=== PATIENT | female | born 1990 | race Caucasian/White ===

== ENCOUNTER 2020-05-24 19:23 | Emergency (ER) | payer BC ==
[2020-05-24] MEDS ORDERED: Sodium Chloride 0.9% 1,000 ML IV ONE (19:26)
--- NOTE | 2020-05-24 19:28 | EDM.PDOC ---
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 She states she has not been able to keep any food down over the past 2 days and is concerned she may be dehydrated. She has seen Dr. Motta at [facility] to confirm with labs. Has not had an OB ultrasound to confirm IUP. 1 para 0. Last menstrual period early March 2020, she is approximately 8 weeks. Patient denies any fever, chills, headache, change in vision, syncope or near syncope. Denies any chest pain, back pain, shortness of breath or cough. Denies any diarrhea, constipation or dysuria. Has not noted any blood in urine or stool. She denies any vaginal discharge or bleeding. Patient has been eating and drinking appropriately. Review of systems: As per history of present illness and below otherwise all systems reviewed and negative. Past medical history: As per history of present illness and as reviewed below otherwise noncontributory. Surgical history: As per history of present illness and as reviewed below otherwise noncontributory. Social history: See social history for further information Family history: As per history of present illness and as reviewed below otherwise noncontributory. Physical exam: General: Well-developed and well-nourished 29-year-old female. Alert and oriented. Nontoxic-appearing and in no acute distress. HEENT: Atraumatic, normocephalic, pupils equal and reactive bilaterally, negative for conjunctival pallor or scleral icterus, mucous membranes moist, TMs normal bilaterally, throat clear, neck supple, nontender, trachea midline. No drooling or trismus noted. No meningeal signs. No hot potato voice noted. Lungs: Clear to auscultation, breath sounds equal bilaterally, chest nontender. Heart: S1S2, regular rate and rhythm without overt murmur Abdomen: Soft, nondistended, nontender. Negative for masses or hepatosplenomegaly. Negative for costovertebral tenderness. Pelvis: Stable nontender. Skin: Intact, warm, dry. No lesions or rashes noted. Hematologic: No petechiae or purpra. Mucosa appropriate color and normal nail bed color and refill. Extremities: Atraumatic, moves all extremities per self without difficulty or deficits, negative for cords or calf pain. Neurovascular unremarkable. Neuro: Awake, alert, oriented. Cranial nerves II through XII unremarkable. Cerebellum unremarkable. Motor and sensory unremarkable throughout. Exam nonfocal. Notes: Lab work is unremarkable. B Positive blood type. Ultrasound shows a single IUP measuring 8 weeks and 3 days. Heart rate 185., No complicating processes identified. Patient states she still has nausea. She declined wanting to insert a Phenergan suppository while here in the emergency room or receive an IM injection. I did talk to Dr. Anand, MAP MAKER on-call about their preferred next medications. She would like the patient to try Phenergan. Will try Phenergan outpatient. Patient's vital signs are stable. On reevaluation she is appropriate for discharge. Supportive care measures were reviewed and discussed. Voices understanding and is agreeable to plan of care. Denies any further questions or concerns at this time. Diagnostics: CBC, CMP, UA, quantitative hCG, OB ultrasound Therapeutics: IV fluids, Zofran Prescription: Phenergan Impression: Hyperemesis gravidarum Plan: 1. Please start and/or continue to take your vitamin with folic acid once daily. 2. Your lab work and ultrasound were normal. You are measuring at 8 weeks and 3 days (Due 12/31/2020). 3. Tylenol as needed for pain management. May use the phenergan as needed for nausea/vomiting. 4. Follow up with her MAP MAKER in the next 1-2 days. If your symptoms should worsen, new symptoms develop or any of the signs and symptoms we discussed should arise please return to the emergency room or call 911 (if needed). Definitive disposition and diagnosis as appropriate pending reevaluation and review of above. Abdomen Pain Score (Numeric/FACES): 5 - Related Data Allergies Allergy/AdvReac Type Severity Reaction Status Date / Time No Known Allergies Allergy Verified 05/24/20 19:42 Home Meds: Home Meds Albuterol [Ventolin HFA] 1 inh INH DAILY PRN 05/24/20 [History] Ondansetron [Zofran ODT] 4 mg PO Q6H PRN #15 tab.dis 05/24/20 [Rx] ED ROS GENERAL - Review of Systems Review Of Systems: Comprehensive ROS is negative, except as noted in HPI. ED EXAM - Physical Exam Exam: See Below (See dictation) Course - Vital Signs Last Recorded V/S: Last Vital Signs Temp 97.6 F 05/24/20 19:42 Pulse 73 05/24/20 21:38 Resp 18 05/24/20 21:38 BP 106/61 05/24/20 21:38 Pulse Ox 98 05/24/20 21:38 - Orders/Labs/Meds Labs: Laboratory Tests 05/24/20 05/24/20 05/24/20 Range/Units 19:55 19:55 19:55 WBC 8.70 (4.0-11.0) K/uL RBC 4.54 (4.30-5.90) M/uL Hgb 14.2 (12.0-16.0) g/dL Hct 41.6 (36.0-46.0) % MCV 91.6 (80.0-98.0) fL MCH 31.3 (27.0-32.0) pg MCHC 34.1 (31.0-37.0) g/dL RDW Std Deviation 42.4 (28.0-62.0) fl RDW Coeff of Bobo 13 (11.0-15.0) % Plt Count 279 (150-400) K/uL MPV 10.30 (7.40-12.00) fL Neut % (Auto) 86.0 H (48.0-80.0) % Lymph % (Auto) 7.4 L (16.0-40.0) % [place] % (Auto) 6.3 (0.0-15.0) % Eos % (Auto) 0.1 (0.0-7.0) % Baso % (Auto) 0.2 (0.0-1.5) % Neut # (Auto) 7.5 H (1.4-5.7) K/uL Lymph # (Auto) 0.6 (0.6-2.4) K/uL [place] # (Auto) 0.6 (0.0-0.8) K/uL Eos # (Auto) 0.0 (0.0-0.7) K/uL Baso # (Auto) 0.0 (0.0-0.1) K/uL Nucleated RBC % 0.0 /100WBC Nucleated RBCs # 0 K/uL Sodium 137 (136-145) mmol/L Potassium 3.6 (3.5-5.1) mmol/L Chloride 101 (98-107) mmol/L Carbon Dioxide 25.9 (21.0-32.0) mmol/L BUN 9 (7.0-18.0) mg/dL Creatinine 0.8 (0.6-1.0) mg/dL Est Cr Clr Drug Dosing 107.46 mL/min Estimated GFR (MDRD) > 60.0 ml/min Glucose 101 (74-106) mg/dL Calcium 8.6 (8.5-10.1) mg/dL Total Bilirubin 0.1 L (0.2-1.0) mg/dL AST 20 (15-37) IU/L ALT 22 (14-63) IU/L Alkaline Phosphatase 38 L (46-116) U/L Total Protein 8.1 (6.4-8.2) g/dL Albumin 4.0 (3.4-5.0) g/dL Globulin 4.1 H (2.6-4.0) g/dL Albumin/Globulin Ratio 1.0 (0.9-1.6) HCG, Quant 74262.0 mIU/mL Urine Color Urine Appearance Urine pH (5.0-8.0) Ur Specific [place] (1.001-1.035) Urine Protein (NEGATIVE) mg/dL Urine Glucose (UA) (NEGATIVE) mg/dL Urine Ketones (NEGATIVE) mg/dL Urine Occult Blood (NEGATIVE) Urine Nitrite (NEGATIVE) Urine Bilirubin (NEGATIVE) Urine Urobilinogen (<2.0) EU/dL Ur Leukocyte Esterase (NEGATIVE) Blood Type 05/24/20 05/24/20 Range/Units 19:55 20:17 WBC (4.0-11.0) K/uL RBC (4.30-5.90) M/uL Hgb (12.0-16.0) g/dL Hct (36.0-46.0) % MCV (80.0-98.0) fL MCH (27.0-32.0) pg MCHC (31.0-37.0) g/dL RDW Std Deviation (28.0-62.0) fl RDW Coeff of Bobo (11.0-15.0) % Plt Count (150-400) K/uL MPV (7.40-12.00) fL Neut % (Auto) (48.0-80.0) % Lymph % (Auto) (16.0-40.0) % [place] % (Auto) (0.0-15.0) % Eos % (Auto) (0.0-7.0) % Baso % (Auto) (0.0-1.5) % Neut # (Auto) (1.4-5.7) K/uL Lymph # (Auto) (0.6-2.4) K/uL [place] # (Auto) (0.0-0.8) K/uL Eos # (Auto) (0.0-0.7) K/uL Baso # (Auto) (0.0-0.1) K/uL Nucleated RBC % /100WBC Nucleated RBCs # K/uL Sodium (136-145) mmol/L Potassium (3.5-5.1) mmol/L Chloride (98-107) mmol/L Carbon Dioxide (21.0-32.0) mmol/L BUN (7.0-18.0) mg/dL Creatinine (0.6-1.0) mg/dL Est Cr Clr Drug Dosing mL/min Estimated GFR (MDRD) ml/min Glucose (74-106) mg/dL Calcium (8.5-10.1) mg/dL Total Bilirubin (0.2-1.0) mg/dL AST (15-37) IU/L ALT (14-63) IU/L Alkaline Phosphatase (46-116) U/L Total Protein (6.4-8.2) g/dL Albumin (3.4-5.0) g/dL Globulin (2.6-4.0) g/dL Albumin/Globulin Ratio (0.9-1.6) HCG, Quant mIU/mL Urine Color YELLOW Urine Appearance CLEAR Urine pH 6.0 (5.0-8.0) Ur Specific [place] 1.015 (1.001-1.035) Urine Protein NEGATIVE (NEGATIVE) mg/dL Urine Glucose (UA) NEGATIVE (NEGATIVE) mg/dL Urine Ketones NEGATIVE (NEGATIVE) mg/dL Urine Occult Blood NEGATIVE (NEGATIVE) Urine Nitrite NEGATIVE (NEGATIVE) Urine Bilirubin NEGATIVE (NEGATIVE) Urine Urobilinogen 0.2 (<2.0) EU/dL Ur Leukocyte Esterase NEGATIVE (NEGATIVE) Blood Type B POSITIVE Meds: Medications Discontinued Medications Generic Name Dose Route Start Last Admin Trade Name Freq PRN Reason Stop Dose Admin Sodium Chloride 1,000 mls @ 999 mls/hr 05/24/20 19:26 05/24/20 20:01 Normal Saline IV 05/24/20 20:26 999 mls/hr STAT ONE Administration Ondansetron HCl 4 mg 05/24/20 19:50 05/24/20 20:01 Zofran IVPUSH 05/24/20 19:51 4 mg ONETIME ONE Administration Ondansetron HCl Confirm 05/24/20 19:59 05/24/20 20:19 Zofran Administered 05/24/20 20:00 Not Given Dose 4 mg .ROUTE .STK-MED ONE Promethazine HCl 12.5 mg 05/24/20 21:38 Phenadoz RECTAL 05/24/20 21:39 ONETIME ONE Departure - Departure Time of Disposition: 21:35 Disposition: Home, Self-Care 01 Clinical Impression: Hyperemesis gravidarum - Discharge Information Prescriptions: Ondansetron [Zofran ODT] 4 mg PO Q6H PRN #15 tab.dis PRN Reason: Nausea Referrals: PCP,None [Primary Care Provider] - Forms: ED Department Discharge Additional Instructions: The following information is given to patients seen in the emergency department who are being discharged to home. This information is to outline your options for follow-up care. We provide all patients seen in our emergency department with a follow-up referral. The need for follow-up, as well as the timing and circumstances, are variable depending upon the specifics of your emergency department visit. If you don't have a primary care physician on staff, we will provide you with a referral. We always advise you to contact your personal physician following an emergency department visit to inform them of the circumstance of the visit and for follow-up with them and/or the need for any referrals to a consulting specialist. The emergency department will also refer you to a specialist when appropriate. This referral assures that you have the opportunity for follow-up care with a specialist. All of these measure are taken in an effort to provide you with optimal care, which includes your follow-up. Under all circumstances we always encourage you to contact your private physician who remains a resource for coordinating your care. When calling for follow-up care, please make the office aware that this follow-up is from your recent emergency room visit. If for any reason you are refused follow-up, please contact the [facility] Emergency Department at and asked to speak to the emergency department charge nurse. [facility] [address] [place] [id number] [facility] [address] [place] [id number] Thank you for choosing the [facility] emergency department in [place] for your medical needs today. It was a pleasure caring for you. Today you were seen in the emergency department for nausea and vomiting in . 1. Please start and/or continue to take your vitamin with folic acid once daily. 2. Your lab work and ultrasound were normal. You are measuring at 8 weeks and 3 days (Due 12/31/2020). 3. Tylenol as needed for pain management. May use the phenergan as needed for nausea/vomiting. 4. Follow up with her MAP MAKER in the next 1-2 days. If your symptoms should worsen, new symptoms develop or any of the signs and symptoms we discussed should arise please return to the emergency room or call 911 (if needed). Sepsis Event Note (ED) - Focused Exam Vital Signs: Vital Signs Temp Pulse Resp BP Pulse Ox 05/24/20 21:38 73 18 106/61 98 05/24/20 21:00 73 14 108/57 L 99 05/24/20 19:42 97.6 F 74 20 118/74 97
[2020-05-24] MEDS ORDERED: Ondansetron 4 MG/2 ML SDV IVPUSH ONE (19:50)
[2020-05-24] MEDS ORDERED: Ondansetron 4 MG/2 ML SDV ONE (19:59)
[2020-05-24 20:29] LABS: BLOOD UREA NITROGEN,BUN 9 mg/dL (7.0-18.0); CARBON DIOXIDE,CO2 25.9 mmol/L (21.0-32.0); CHLORIDE,CL 101 mmol/L (98-107); GLUCOSE RANDOM 101 mg/dL (74-106); POTASSIUM,K 3.6 mmol/L (3.5-5.1); SODIUM,NA 137 mmol/L (136-145)
--- NOTE | 2020-05-24 21:14 | US ---
First trimester obstetrical ultrasound: Multiple real-time images were obtained transvaginally. Comparison: No previous study for current . Dates: Current ultrasound: WIN 12/31/20, gestational age 8 weeks 3 days Single intrauterine gestation is seen. Amniotic fluid volume is normal. Small embryo is identified as well as yolk sac. No subchorionic hemorrhage is identified. Small corpus luteum cyst is noted within the maternal left ovary believed to be incidental. Right maternal ovary is normal. Measurements: Binger-rump length: 18.73 mm - 8 weeks 3 days Heart rate: 185 bpm Impression: 1. Single intrauterine gestation. Dates as noted above. 2. No complicating process is identified by ultrasound at this time. Diagnostic code #1 This report was dictated in MDT
[2020-05-24] MEDS ORDERED: Promethazine 12.5 MG Supp RECTAL ONE (21:38)
== END 2020-05-24 22:09 | disposition home or self-care (01) ==
LOC: MW.ED 19:23
DX: O21.0 Mild hyperemesis gravidarum (principal); Z3A.08 8 weeks gestation of pregnancy; O99.89 Other specified diseases and conditions complicating pregnancy, childbirth and the puerperium; R10.84 Generalized abdominal pain
CPT/HCPCS: 36415; 76801; 80053; 81003; 84702; 85025; 86900; 86901; 96361; 96374; 99284; A9270; J7030; 99283; J2405

== ENCOUNTER 2021-01-06 05:11 | Inpatient (IN) | payer BC ==
[2021-01-06] MEDS ORDERED: Sodium Chloride 0.9% 10 ML SDV IV PRN (05:14)
[2021-01-06] MEDS ORDERED: Methylergonovine 0.2 MG/1 ML Amp IM PRN (05:14)
[2021-01-06] MEDS ORDERED: Nalbuphine 10 MG/1 ML Vial IVPUSH PRN (05:14)
[2021-01-06] MEDS ORDERED: Carboprost Tromethamine 250 MCG/1 ML Amp IM PRN (05:14)
[2021-01-06] MEDS ORDERED: Tranexamic Acid 1,000 MG in Sodium Chloride 0.9% 100 ML IV PRN (05:14)
[2021-01-06] MEDS ORDERED: Lidocaine 1% 50 ML MDV INJECT PRN (05:14)
[2021-01-06] MEDS ORDERED: Butorphanol 1 MG/ML SDV IVPUSH PRN (05:14)
[2021-01-06] MEDS ORDERED: Water For Irrigation,Sterile 1,000 ML Container IRR PRN (05:14)
[2021-01-06] MEDS ORDERED: Sodium Chloride 0.9% 10 ML Syringe FLUSH PRN (05:14)
[2021-01-06] MEDS ORDERED: Terbutaline 1 MG/ML SDV SUBCUT PRN (05:14)
[2021-01-06] MEDS ORDERED: Misoprostol 200 MCG Tab PO PRN (05:14)
[2021-01-06] MEDS ORDERED: Sodium Chloride 0.9% 2.5 ML Syringe FLUSH PRN (05:14)
[2021-01-06] MEDS ORDERED: Oxytocin/0.9 % Sodium Chloride 30 UNIT/500 ML BAG IV SCH ×2 (05:15)
[2021-01-06] MEDS ORDERED: Ondansetron 4 MG/2 ML SDV IVPUSH PRN (05:21)
[2021-01-06] MEDS: Lactated Ringers 1,000 ML IV SCH ×6 (06:19→17:14)
[2021-01-06] MEDS ORDERED: fentaNYL 100 MCG/2 ML SDV ONE ×3 (11:12→16:29)
[2021-01-06] MEDS ORDERED: Bupivicaine/fentaNYL/NS 250 ML ONE (11:12)
--- NOTE | 2021-01-06 11:41 | PCM.PREANE ---
Preanesthetic Assessment - Anesthesia/Transfusion/Family Hx Anesthesia History: No Prior Anesthesia Family History of Anesthesia Reaction: No Transfusion History: Unknown Intubation History: Unknown - Review of Systems General: No Symptoms Pulmonary: No Symptoms Cardiovascular: No Symptoms Gastrointestinal: Abdominal Pain (labor pain) Neurological: No Symptoms Other: Reports: None - Physical Assessment Height: 5 ft 8 in Weight: 100.698 kg ASA Class: 2 Mental Status: Alert & Oriented x3 Airway Class: Mallampati = 1 Dentition: Reports: Normal Dentition Thyro-Mental Finger Breadths: 3 Mouth Opening Finger Breadths: 3 ROM/Head Extension: Full Lungs: Clear to Auscultation, Normal Respiratory Effort Cardiovascular: Regular Rate, Regular Rhythm - Lab Values: Laboratory Last Values WBC 11.84 K/uL (4.0-11.0) H 01/06/21 06:00 RBC 3.97 M/uL (4.30-5.90) L 01/06/21 06:00 Hgb 12.6 g/dL (12.0-16.0) 01/06/21 06:00 Hct 37.6 % (36.0-46.0) 01/06/21 06:00 MCV 94.7 fL (80.0-98.0) 01/06/21 06:00 MCH 31.7 pg (27.0-32.0) 01/06/21 06:00 MCHC 33.5 g/dL (31.0-37.0) 01/06/21 06:00 RDW Std Deviation 47.3 fl (28.0-62.0) 01/06/21 06:00 RDW Coeff of Bobo 14 % (11.0-15.0) 01/06/21 06:00 Plt Count 264 K/uL (150-400) 01/06/21 06:00 MPV 11.70 fL (7.40-12.00) 01/06/21 06:00 Nucleated RBC % 0.0 /100WBC 01/06/21 06:00 Nucleated RBCs # 0 K/uL 01/06/21 06:00 Blood Type B POSITIVE 01/06/21 06:00 Antibody Screen NEGATIVE 01/06/21 06:00 - Allergies Allergies/Adverse Reactions: Allergies Allergy/AdvReac Type Severity Reaction Status Date / Time No Known Allergies Allergy Verified 05/24/20 19:42 - Blood Blood Available: No - Anesthesia Plan Pre-Op Medication Ordered: None - Acknowledgements Anesthesia Type Planned: Epidural Pt an Appropriate Candidate for the Planned Anesthesia: Yes Alternatives and Risks of Anesthesia Discussed w Pt/Guardian: Yes Pt/Guardian Understands and Agrees with Anesthesia Plan: Yes PreAnesthesia Questionnaire Respiratory History: Reports: Asthma 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 History: Reports: Endometriosis, Other OB/BYN History: with sx - Infectious Disease History Infectious Disease History: Reports: Chicken Pox - HOME MEDS Home Medications: Home Meds Albuterol [Ventolin HFA] 1 inh INH DAILY PRN 05/24/20 [History] - CURRENT (IN HOUSE) MEDS Current Meds: Current Medications Butorphanol Tartrate (Butorphanol 1 Mg/Ml Sdv) 1 mg IVPUSH Q1H PRN PRN Reason: Pain Carboprost Tromethamine (Carboprost Tromethamine 250 Mcg/1 Ml Amp) 250 mcg IM ASDIRECTED PRN PRN Reason: Post Hemorrhage Oxytocin/Sodium Chloride (Oxytocin 30 Unit/500 Ml-Ns) 30 unit in 500 mls @ 999 mls/hr IV TITRATE DOROTHY Tranexamic Acid 1,000 mg/ (Sodium Chloride) 110 mls @ 660 mls/hr IV ONETIME PRN PRN Reason: Bleeding Oxytocin/Sodium Chloride (Oxytocin 30 Unit/500 Ml-Ns) 30 unit in 500 mls @ 2 mls/hr IV TITRATE DOROTHY; Protocol Last Titration: 01/06/21 09:28 Dose: 10 munits/min, 10 mls/hr Documented by: Lactated Ringer's (Ringers, Lactated) 1,000 mls @ 150 mls/hr IV ASDIRECTED DOROTHY Last Admin: 01/06/21 11:33 Dose: 999 mls/hr Documented by: Lidocaine HCl (Lidocaine 1% 50 Ml Mdv) 50 ml INJECT ONETIME PRN PRN Reason: Laceration repair Methylergonovine Maleate (Methylergonovine 0.2 Mg/1 Ml Amp) 0.2 mg IM ASDIRECTED PRN PRN Reason: Post Hemorrhage Misoprostol (Misoprostol 200 Mcg Tab) 200 mcg PO ONETIME PRN PRN Reason: Post Hemorrhage Nalbuphine HCl (Nalbuphine 10 Mg/1 Ml Vial) 10 mg IVPUSH Q1H PRN PRN Reason: Pain (severe 7-10) Ondansetron HCl (Ondansetron 4 Mg/2 Ml Sdv) 4 mg IVPUSH Q6H PRN PRN Reason: Nausea/Vomiting Sodium Chloride (Sodium Chloride 0.9% 10 Ml Syringe) 10 ml FLUSH ASDIRECTED PRN PRN Reason: Keep Vein Open Sodium Chloride (Sodium Chloride 0.9% 2.5 Ml Syringe) 2.5 ml FLUSH ASDIRECTED PRN PRN Reason: Keep Vein Open Sodium Chloride (Sodium Chloride 0.9% 10 Ml Sdv) 10 ml IV ASDIRECTED PRN PRN Reason: IV Use Sterile Water (Water For Irrigation,Sterile 1,000 Ml Container) 1,000 ml IRR ASDIRECTED PRN PRN Reason: delivery Terbutaline Sulfate (Terbutaline 1 Mg/Ml Sdv) 0.25 mg SUBCUT ASDIRECTED PRN PRN Reason: Tacysystole Discontinued Medications Fentanyl (Fentanyl 100 Mcg/2 Ml Sdv) Confirm Administered Dose 100 mcg .ROUTE .STK-MED ONE Stop: 01/06/21 11:13 Fentanyl/Bupivacaine HCl (Fentanyl/Bupivacaine/Ns 2 Mcg-0.125% 250 Ml) Confirm Administered Dose 250 mls @ as directed .ROUTE .STK-MED ONE Stop: 01/06/21 11:13
[2021-01-06] MEDS ORDERED: Lidocaine 2% with EPINEPHrine 1:200,000 20 ML SDV ONE (16:12)
[2021-01-06] MEDS ORDERED: Ropivacaine HCl/PF 100 ML ONE (16:30)
--- NOTE | 2021-01-06 16:56 | PCM.PRNOTE ---
- Free Text/Narrative Note: Anes Note Patient reports incomplete anlagesia in the perineal area. She is 6 cm dilated. Epidural cath was easily removed with tip intact. Patient in sitting position. Chloraprep scrub to lumbar area. Sterile fenestrated drape was applied. Level L3-L4 midline approach. Epidural space easily achieved singel attempt using KATELYNN technique. KATELYNN at 3 cm. Cath threaded 5 cm with ease. 1635 Test 3 cc 1.5% lido with epi negative. 1640 Load 100 mcf fentanyl plus 4 cc 2% lido with epi in slow divided doses. 1645 Pump started wtih 90 cc 0.2% ropiviciane with 1 mcg / cc fentanyl added. Rate is 8 cc hr with 6 cc q 20 min bolus. Patient reports excellent analgesia. A fluid bolus ob 1200 cc LR plus several doses of neosynephrine was given for a number of blodd pressure reading in the 80s. FHT remains normal. Time with patient [id number] Ankit Merida CRNA
[2021-01-07] MEDS ORDERED: Ropivacaine HCl/PF 100 ML ONE (00:29)
[2021-01-07] MEDS ORDERED: fentaNYL 100 MCG/2 ML SDV ONE ×2 (00:29→01:56)
--- NOTE | 2021-01-07 00:39 | PCM.PRNOTE ---
- Free Text/Narrative Note: Anes Note Epidural bag change. A new bag of 100 cc 0.2% ropivicaine with 1 mcg cc fentanyl was placed. Rate is 8 cc hr with 6 cc q 20 min prn bolus. Patient reports excellent analgesia. Tiem with patient [id number] Ankit Merida CRNA
[2021-01-07] MEDS: Lactated Ringers 1,000 ML IV SCH ×3 (00:40→17:20)
[2021-01-07] MEDS ORDERED: Bupivacaine 0.5% 30 ML SDV ONE ×2 (01:57→05:54)
--- NOTE | 2021-01-07 02:14 | PCM.PRNOTE ---
- Free Text/Narrative Note: Anes Note Julisan reports incomplete analgesia in the left and right inguinal areas. Vaginal checks by RN are not uncomfortable. A top up dose of 100 mcg fentanyl plus 5 cc 0.5% bupivicaine was administered. She now reports satisfactory analgesia. Time with patient [id number] Ankit Merida CRNA
[2021-01-07] MEDS ORDERED: Oxytocin 10 Units/1 ML SDV ONE (06:01)
[2021-01-07] MEDS ORDERED: Ketorolac 30 MG/ML SDV ONE (06:01)
[2021-01-07] MEDS ORDERED: Ondansetron 4 MG/2 ML SDV ONE (06:01)
[2021-01-07] MEDS ORDERED: Phenylephrine 1% 10 MG/ML SDV ONE (06:01)
[2021-01-07] MEDS ORDERED: ceFAZolin 1 GM Vial ONE (06:01)
[2021-01-07] MEDS ORDERED: Sodium Chloride 0.9% 20 ML ONE (06:03)
[2021-01-07] MEDS ORDERED: Morphine PF 10 MG/10 ML SDV ONE (06:04)
[2021-01-07] MEDS ORDERED: Sodium Chloride 0.9% 10 ML Syringe FLUSH PRN (08:19)
[2021-01-07] MEDS ORDERED: Sodium Chloride 0.9% 2.5 ML Syringe FLUSH PRN (08:19)
[2021-01-07] MEDS ORDERED: Oxytocin 10 Units/1 ML SDV IM PRN (08:19)
[2021-01-07] MEDS ORDERED: Bisacodyl 10 MG Supp RECTAL PRN (08:19)
[2021-01-07] MEDS ORDERED: Misoprostol 200 MCG Tab RECTAL PRN (08:19)
[2021-01-07] MEDS ORDERED: Tranexamic Acid 1,000 MG in Sodium Chloride 0.9% 100 ML IV PRN (08:19)
[2021-01-07] MEDS ORDERED: Ondansetron 4 MG/2 ML SDV IVPUSH PRN (08:19)
[2021-01-07] MEDS ORDERED: Lanolin 100% Cream 7 GM Tube TOP PRN (08:19)
[2021-01-07] MEDS ORDERED: diphenhydrAMINE 50 MG/ML SDV IVPUSH PRN (08:19)
[2021-01-07] MEDS ORDERED: Methylergonovine 0.2 MG/1 ML Amp IM PRN (08:19)
[2021-01-07] MEDS ORDERED: Acetaminophen/oxyCODONE 325-5 MG Tab PO PRN (08:19)
[2021-01-07] MEDS ORDERED: Ketorolac 30 MG/ML SDV IVPUSH SCH (08:30)
[2021-01-07] MEDS: Docusate Sodium 100 MG Cap PO SCH ×2 (10:32→20:00)
[2021-01-07] MEDS: Ketorolac 30 MG/ML SDV IVPUSH SCH ×2 (13:34→20:01)
--- NOTE | 2021-01-07 15:38 | OR ---
SURGEON: Yifan Nair MD DATE OF PROCEDURE: 01/07/2021 INDICATION FOR PROCEDURE: A 30-year-old, G1, P0, at 40 weeks and 6 days admitted for late term induction of labor. The patient had uncomplicated , is GBS negative. Estimated weight was about 3800 g. She received Pitocin and began making cervical change. She initially received an epidural for anesthesia. However, it was not very effective, and she continued to have pain. Therefore, Pitocin was stopped, and she received a second epidural, which was effective for pain relief. The Pitocin was again started, and she had spontaneous rupture of membranes with clear fluid. She slowly made cervical change and became 9 cm dilated and +1 station. However, did not make change from there. After about 3 hours, IUPC was placed to monitor contractions, and she had adequate contractions. She was also feeling pressure and having the urge to push. She continued pushing for about 2-1/2 hours with good effort. However, the baby's head did not make any descent from +1 station and the head felt asynclitic and LOP position. The heart rate also changed to category 2 tracing with heart rate of 160s, minimal variability, no accelerations, and some early or late decelerations. She did not have any signs of chorioamnionitis. Discussed with the patient that she likely has arrest of descent, most likely due to macrosomia and malpositioning. Would recommend to proceed with primary low transverse section at this time since she is remote from delivery and the baby is showing signs of distress. The patient was agreeable. Questions answered and consent signed. PREOPERATIVE DIAGNOSES: 1. Cline intrauterine at 40 weeks and 6 days. 2. Suspected macrosomia. POSTOPERATIVE DIAGNOSES: 1. Cline intrauterine at 40 weeks and 6 days. 2. Suspected macrosomia. PROCEDURE PERFORMED: Primary low transverse section. ANESTHESIA: Epidural. ANESTHESIOLOGIST: Dr. Sarita Barrios. FINDINGS: Viable male infant. scores were pending. weight of 10 pounds 15 ounces. head was LOP presentation and asynclitic. ESTIMATED BLOOD LOSS: 800 mL. DESCRIPTION OF PROCEDURE: The procedure was discussed with the patient. Risks and complications including bleeding; infection; injury to surrounding organs including bladder, bowel, and ureters; and DVTs. The patient expressed understanding. Consent was signed. The patient was brought to the operating room, she received 2 g Ancef IV and SCDs. Epidural anesthesia was already in place and topped off. Bowers catheter was already in place. The abdomen was prepped with chlorhexidine in sterile fashion and a vaginal prep was completed with Betadine. She was then draped and tested for anesthesia. Epidural was adequate. Pfannenstiel incision was made with a scalpel and dissected down to fascia. Multiple sites of bleeding were noted and cauterized. The fascia was cleared of subcutaneous tissue. The fascia was incised in the midline and extended laterally with curved Oliva scissors. Josué clamps were placed on the superior fascial edge. The rectus muscles were by blunt dissection and using Oliva scissors. The same process was repeated for the inferior fascial edge. The rectus muscles were in the midline bluntly and the peritoneum entered. Both were than carefully dissected and extended bluntly, dissected with Metzenbaum scissors. A large Kam O retractor was placed in the peritoneal cavity. The bladder was noted to be away from the site of incision. The uterus was incised transversely using a scalpel at the lower uterine segment and extended bluntly. Clear amniotic fluid was noted. The 's head was noted to be LOP presentation and asynclitic in the pelvis. Multiple attempts were made to turn the infant's head away and flex it, so it would come through the hysterotomy and fundal pressure was applied and the head was delivered atraumatically. The shoulders and body were delivered without difficulty. The umbilical cord was clamped and cut after 60 seconds and no longer pulsating. The baby was pink, crying vigorously, and moving all extremities immediately after delivery and handed off to nursery staff. The umbilical cord gases were obtained. The placenta was delivered with gentle traction on the umbilical cord. A clean sponge was used to remove all remaining membranes from the endometrial cavity and Allis clamps were used to grasp the angles and lower edges of the incision. It was noted she had an extension on both sides of the hysterotomy. The uterine incision was closed in two layers, first layer with running locking fashion using 0 Monocryl, the second layer was done with imbricated running fashion with 0 Vicryl. The incision was checked for hemostasis. [id number] were placed at two sites where there was small amount of bleeding. The paracolic gutters were cleared of any clots and the incision was irrigated. The incision was found to be hemostatic. The Kam O retractor was removed from the peritoneal cavity. The peritoneum was grasped by hemostats and brought together at the midline. It was closed using 2-0 Vicryl in running fashion. The rectus muscle was reapproximated in the midline with two mattress sutures. The rectus muscle was examined and found to be intact and hemostatic. The fascia was closed using 0 Vicryl in running fashion. The subcutaneous tissue was irrigated and bleeding area was cauterized. The subcutaneous layer was brought together with 2-0 plain in running fashion. The skin was then closed subcuticularly using 3-0 Monocryl on a Darwin needle. Steri-Strips were placed over the incision. ABD dressing, pressure dressing was applied over the incision. The patient tolerated the procedure well, was given postop care instructions. KAILASH COLE /[id number]
[2021-01-08] MEDS: Ketorolac 30 MG/ML SDV IVPUSH SCH ×2 (02:38→08:13)
--- NOTE | 2021-01-08 06:50 | PCM48HPAN ---
Post Anesthesia Note - EVALUATION WITHIN 48HRS OF ANESTHETIC Vital Signs in Normal Range: Yes Patient Participated in Evaluation: Yes Respiratory Function Stable: Yes Airway Patent: Yes Cardiovascular Function Stable: Yes Hydration Status Stable: Yes Pain Control Satisfactory: Yes Nausea and Vomiting Control Satisfactory: Yes Mental Status Recovered: Yes Vital Signs: Last Vital Signs Temp 35.8 C L 01/08/21 04:25 Pulse 87 01/08/21 06:00 Resp 17 01/08/21 06:00 BP 99/57 L 01/08/21 04:25 Pulse Ox 94 L 01/08/21 06:00 - COMMENTS/OBSERVATIONS Free Text/Narrative:: No anesthesia problems
[2021-01-08] MEDS: Docusate Sodium 100 MG Cap PO SCH (08:13)
--- NOTE | 2021-01-08 08:57 | PCM.PNPP ---
- General Info Date of Service: 01/08/21 Functional Status: Reports: Pain Controlled, Tolerating Diet, Ambulating, Urinating - Review of Systems General: Reports: Fatigue. Denies: Fever, Weakness Pulmonary: Denies: Shortness of Breath Cardiovascular: Denies: Chest Pain, Palpitations Gastrointestinal: Denies: Abdominal Pain, Constipation, Nausea, Vomiting Genitourinary: Denies: Flank Pain Musculoskeletal: Reports: Neck Pain (just sore from pushing), Shoulder Pain Skin: Reports: No Symptoms Neurological: Reports: No Symptoms Psychiatric: Reports: No Symptoms - General Info Date of Service: 01/08/21 - Patient Data Vital Signs - Most Recent: Last Vital Signs Temp 35.8 C L 01/08/21 04:25 Pulse 87 01/08/21 06:00 Resp 17 01/08/21 06:00 BP 99/57 L 01/08/21 04:25 Pulse Ox 94 L 01/08/21 06:00 Weight - Most Recent: 100.698 kg I&O - Last 24 Hours: Intake & Output 01/07/21 01/08/21 01/08/21 22:59 06:59 14:59 Output Total 375 850 Balance -375 -850 Lab Results - Last 24 Hours: Laboratory Results - last 24 hr 01/08/21 Range/Units 05:42 Hgb 8.8 L (12.0-16.0) g/dL Hct 26.1 L (36.0-46.0) % Med Orders - Current: Current Medications Bisacodyl (Bisacodyl 10 Mg Supp) 10 mg RECTAL ONETIME PRN PRN Reason: Constipation Diphenhydramine HCl (Diphenhydramine 50 Mg/Ml Sdv) 25 mg IVPUSH Q6H PRN PRN Reason: Itching or Nausea Docusate Sodium (Docusate Sodium 100 Mg Cap) 100 mg PO BID DOROTHY Last Admin: 01/08/21 08:13 Dose: 100 mg Documented by: Emollient Ointment (Lanolin 100% Cream 7 Gm Tube) 0 gm TOP ASDIRECTED PRN PRN Reason: Sore Nipples Oxytocin/Sodium Chloride (Oxytocin 30 Unit/500 Ml-Ns) 30 unit in 500 mls @ 2 mls/hr IV TITRATE DOROTHY; Protocol Last Titration: 01/07/21 05:30 Dose: 0 munits/min, 0 mls/hr Documented by: Lactated Ringer's (Ringers, Lactated) 1,000 mls @ 125 mls/hr IV ASDIRECTED DOROTHY Last Admin: 01/07/21 17:20 Dose: 125 mls/hr Documented by: Tranexamic Acid 1,000 mg/ (Sodium Chloride) 110 mls @ 660 mls/hr IV ONETIME PRN PRN Reason: Bleeding Ibuprofen (Ibuprofen 800 Mg Tab) 800 mg PO Q8H PRN PRN Reason: mild pain or fever Methylergonovine Maleate (Methylergonovine 0.2 Mg/1 Ml Amp) 0.2 mg IM ONETIME PRN PRN Reason: Excessive Vaginal Bleeding Misoprostol (Misoprostol 200 Mcg Tab) 1,000 mcg RECTAL ONETIME PRN PRN Reason: excessive bleeding Ondansetron HCl (Ondansetron 4 Mg/2 Ml Sdv) 4 mg IVPUSH Q4H PRN PRN Reason: Nausea/Vomiting Oxycodone/Acetaminophen (Acetaminophen/Oxycodone 325-5 Mg Tab) 1 tab PO Q4H PRN PRN Reason: Pain (moderate 4-6) Oxycodone/Acetaminophen (Acetaminophen/Oxycodone 325-5 Mg Tab) 2 tab PO Q4H PRN PRN Reason: Pain (moderate 4-6) Oxytocin (Oxytocin 10 Units/1 Ml Sdv) 10 unit IM ASDIRECTED PRN PRN Reason: Excessive Vaginal Bleeding Sodium Chloride (Sodium Chloride 0.9% 10 Ml Syringe) 10 ml FLUSH ASDIRECTED PRN PRN Reason: Keep Vein Open Sodium Chloride (Sodium Chloride 0.9% 2.5 Ml Syringe) 2.5 ml FLUSH ASDIRECTED PRN PRN Reason: Keep Vein Open Sodium Chloride (Sodium Chloride 0.9% 10 Ml Sdv) 10 ml IV ASDIRECTED PRN PRN Reason: IV Use Sodium Chloride (Sodium Chloride 0.9% 10 Ml Syringe) 10 ml FLUSH ASDIRECTED PRN PRN Reason: Keep Vein Open Sodium Chloride (Sodium Chloride 0.9% 2.5 Ml Syringe) 2.5 ml FLUSH ASDIRECTED PRN PRN Reason: Keep Vein Open Terbutaline Sulfate (Terbutaline 1 Mg/Ml Sdv) 0.25 mg SUBCUT ASDIRECTED PRN PRN Reason: Tacysystole Discontinued Medications Bupivacaine HCl (Bupivacaine 0.5% 30 Ml Sdv) Confirm Administered Dose 30 ml .ROUTE .STK-MED ONE Stop: 01/07/21 01:58 Last Admin: 01/07/21 21:02 Dose: Not Given Documented by: Bupivacaine HCl (Bupivacaine 0.5% 30 Ml Sdv) Confirm Administered Dose 30 ml .ROUTE .STK-MED ONE Stop: 01/07/21 05:55 Last Admin: 01/07/21 21:02 Dose: Not Given Documented by: Butorphanol Tartrate (Butorphanol 1 Mg/Ml Sdv) 1 mg IVPUSH Q1H PRN PRN Reason: Pain Carboprost Tromethamine (Carboprost Tromethamine 250 Mcg/1 Ml Amp) 250 mcg IM ASDIRECTED PRN PRN Reason: Post Hemorrhage Cefazolin Sodium (Cefazolin 1 Gm Vial) Confirm Administered Dose 2 gm .ROUTE .[facility] [place] Orders-MED ONE Stop: 01/07/21 06:02 Fentanyl (Fentanyl 100 Mcg/2 Ml Sdv) Confirm Administered Dose 100 mcg .ROUTE .[facility] Orders-[facility] ONE Stop: 01/06/21 11:13 Last Admin: 01/07/21 21:00 Dose: Not Given Documented by: Fentanyl (Fentanyl 100 Mcg/2 Ml Sdv) Confirm Administered Dose 100 mcg .ROUTE .[facility] Orders-[facility] ONE Stop: 01/06/21 16:13 Last Admin: 01/07/21 21:00 Dose: Not Given Documented by: Fentanyl (Fentanyl 100 Mcg/2 Ml Sdv) Confirm Administered Dose 100 mcg .ROUTE .[place] Orders-MED ONE Stop: 01/06/21 16:30 Last Admin: 01/07/21 21:01 Dose: Not Given Documented by: Fentanyl (Fentanyl 100 Mcg/2 Ml Sdv) Confirm Administered Dose 100 mcg .ROUTE .STK-MED ONE Stop: 01/07/21 00:30 Last Admin: 01/07/21 21:01 Dose: Not Given Documented by: Fentanyl (Fentanyl 100 Mcg/2 Ml Sdv) Confirm Administered Dose 100 mcg .ROUTE .STK-MED ONE Stop: 01/07/21 01:57 Last Admin: 01/07/21 21:01 Dose: Not Given Documented by: Oxytocin/Sodium Chloride (Oxytocin 30 Unit/500 Ml-Ns) 30 unit in 500 mls @ 999 mls/hr IV TITRATE DOROTHY Tranexamic Acid 1,000 mg/ (Sodium Chloride) 110 mls @ 660 mls/hr IV ONETIME PRN PRN Reason: Bleeding Lactated Ringer's (Ringers, Lactated) 1,000 mls @ 150 mls/hr IV ASDIRECTED [facility] Last Admin: 01/07/21 00:40 Dose: 150 mls/hr Documented by: Fentanyl/Bupivacaine HCl (Fentanyl/Bupivacaine/Ns 2 Mcg-0.125% 250 Ml) Confirm Administered Dose 250 mls @ as directed .ROUTE .STK-MED ONE Stop: 01/06/21 11:13 Last Admin: 01/07/21 21:00 Dose: Not Given Documented by: Ropivacaine (Naropin 0.2%) Confirm Administered Dose 100 mls @ as directed .ROUTE .[facility] Stop: 01/06/21 16:31 Last Admin: 01/07/21 21:01 Dose: Not Given Documented by: Ropivacaine (Naropin 0.2%) Confirm Administered Dose 100 mls @ as directed .ROUTE .[facility] Stop: 01/07/21 00:30 Last Admin: 01/07/21 21:01 Dose: Not Given Documented by: Sodium Chloride (Normal Saline) Confirm Administered Dose 20 mls @ as directed .ROUTE [facility] [facility] ONE Stop: 01/07/21 06:04 Ketorolac Tromethamine (Ketorolac 30 Mg/Ml Sdv) Confirm Administered Dose 30 mg .ROUTE .STK-MED ONE Stop: 01/07/21 06:02 Ketorolac Tromethamine (Ketorolac 30 Mg/Ml Sdv) 30 mg IVPUSH Q6H [facility] Stop: 01/08/21 08:31 Last Admin: 01/07/21 13:25 Dose: Not Given Documented by: Ketorolac Tromethamine (Ketorolac 30 Mg/Ml Sdv) 30 mg IVPUSH Q6H [facility] Stop: 01/08/21 07:31 Last Admin: 01/08/21 08:13 Dose: 30 mg Documented by: Lidocaine HCl (Lidocaine 1% 50 Ml Mdv) 50 ml INJECT ONETIME PRN PRN Reason: Laceration repair Lidocaine/Epinephrine (Lidocaine 2% With Epinephrine 1:200,000 20 Ml Sdv) Confirm Administered Dose 20 ml .ROUTE .STK-MED ONE Stop: 01/06/21 16:13 Last Admin: 01/07/21 21:00 Dose: Not Given Documented by: Methylergonovine Maleate (Methylergonovine 0.2 Mg/1 Ml Amp) 0.2 mg IM ASDIRECTED PRN PRN Reason: Post Hemorrhage Misoprostol (Misoprostol 200 Mcg Tab) 200 mcg PO ONETIME PRN PRN Reason: Post Hemorrhage Morphine Sulfate (Morphine Pf 10 Mg/10 Ml Sdv) Confirm Administered Dose 10 mg .ROUTE .STK-MED ONE Stop: 01/07/21 06:05 Nalbuphine HCl (Nalbuphine 10 Mg/1 Ml Vial) 10 mg IVPUSH Q1H PRN PRN Reason: Pain (severe 7-10) Ondansetron HCl (Ondansetron 4 Mg/2 Ml Sdv) 4 mg IVPUSH Q6H PRN PRN Reason: Nausea/Vomiting Last Admin: 01/06/21 18:12 Dose: 4 mg Documented by: Ondansetron HCl (Ondansetron 4 Mg/2 Ml Sdv) Confirm Administered Dose 4 mg .ROUTE .STK-MED ONE Stop: 01/07/21 06:02 Oxytocin (Oxytocin 10 Units/1 Ml Sdv) Confirm Administered Dose 20 unit .ROUTE .STK-MED ONE Stop: 01/07/21 06:02 Phenylephrine HCl (Phenylephrine 1% 10 Mg/Ml Sdv) Confirm Administered Dose 10 mg .ROUTE .STK-MED ONE Stop: 01/07/21 06:02 Sterile Water (Water For Irrigation,Sterile 1,000 Ml Container) 1,000 ml IRR ASDIRECTED PRN PRN Reason: delivery - Infant Interaction Support Person: - Recovery Exam Fundal Tone: Firm Fundal Level: At Umbilicus Fundal Placement: Midline Lochia Amount: Scant Lochia Color: Rubra/Red Perineum Description: Intact, Minimal Bruising/Swelling Episiotomy/Laceration: None Bladder Status: Indwelling Catheter in Place Urinary Elimination: Indwelling Catheter - Exam General: Alert, Oriented Lungs: Normal Respiratory Effort Cardiovascular: Regular Rate, Regular Rhythm GI/Abdominal Exam: Normal Bowel Sounds, Soft Extremities: Pedal Edema (1+). No: Anna's Sign Skin: Warm, Dry, Intact Wound/Incisions: Healing Well, No Drainage. No: Erythema Neurological: No New Focal Deficit Psy/Mental Status: Alert, Normal Affect, Normal Mood - Problem List & Annotations (1) Arrest of descent, delivered, current hospitalization SNOMED Code(s): 44948092, 381378076 Code(s): O62.1 - SECONDARY UTERINE INERTIA Status: Acute Current Visit: Yes (2) Delivery by section SNOMED Code(s): 121473178 Code(s): TMC5611 - Status: Acute Current Visit: Yes - Problem List Review Problem List Initiated/Reviewed/Updated: Yes - Assessment Assessment:: POD 1 status post Primary LTCS - Plan Plan:: VS are stable, labs reassuring overall. Encouraged ambulation today and working with . May shower. Continue postoperative cares.
[2021-01-08] MEDS: Ibuprofen 800 MG Tab PO PRN (14:25)
[2021-01-09] MEDS: Ibuprofen 800 MG Tab PO PRN ×2 (00:24→08:09)
[2021-01-09] MEDS: Acetaminophen/oxyCODONE 325-5 MG Tab PO PRN ×3 (00:24→11:37)
[2021-01-09] MEDS: Docusate Sodium 100 MG Cap PO SCH (08:07)
--- NOTE | 2021-01-09 08:59 | PCM.PNPP ---
- General Info Date of Service: 01/09/21 Functional Status: Reports: Pain Controlled, Tolerating Diet, Ambulating, Urinating - Review of Systems General: Reports: Fatigue. Denies: Fever, Weakness Pulmonary: Denies: Shortness of Breath Cardiovascular: Denies: Chest Pain, Palpitations, Lightheadedness Gastrointestinal: Denies: Abdominal Pain, Nausea, Vomiting Genitourinary: Denies: Flank Pain Musculoskeletal: Reports: No Symptoms Skin: Reports: No Symptoms Neurological: Reports: No Symptoms Psychiatric: Reports: No Symptoms - General Info Date of Service: 01/09/21 - Patient Data Vital Signs - Most Recent: Last Vital Signs Temp 36.2 C 01/09/21 04:51 Pulse 70 01/09/21 04:51 Resp 18 01/09/21 04:51 BP 101/53 L 01/09/21 04:51 Pulse Ox 97 01/09/21 04:51 Weight - Most Recent: 100.788 kg Lab Results - Last 24 Hours: Laboratory Results - last 24 hr 01/06/21 Range/Units 06:00 RPR Non-Reac (Non-Reac) Med Orders - Current: Current Medications Bisacodyl (Bisacodyl 10 Mg Supp) 10 mg RECTAL ONETIME PRN PRN Reason: Constipation Diphenhydramine HCl (Diphenhydramine 50 Mg/Ml Sdv) 25 mg IVPUSH Q6H PRN PRN Reason: Itching or Nausea Docusate Sodium (Docusate Sodium 100 Mg Cap) 100 mg PO BID DOROTHY Last Admin: 01/09/21 08:07 Dose: 100 mg Documented by: Emollient Ointment (Lanolin 100% Cream 7 Gm Tube) 0 gm TOP ASDIRECTED PRN PRN Reason: Sore Nipples Last Admin: 01/09/21 00:43 Dose: 7 g Documented by: Oxytocin/Sodium Chloride (Oxytocin 30 Unit/500 Ml-Ns) 30 unit in 500 mls @ 2 mls/hr IV TITRATE DOROTHY; Protocol Last Titration: 01/07/21 05:30 Dose: 0 munits/min, 0 mls/hr Documented by: Lactated Ringer's (Ringers, Lactated) 1,000 mls @ 125 mls/hr IV ASDIRECTED DOROTHY Last Admin: 01/07/21 17:20 Dose: 125 mls/hr Documented by: Tranexamic Acid 1,000 mg/ (Sodium Chloride) 110 mls @ 660 mls/hr IV ONETIME PRN PRN Reason: Bleeding Ibuprofen (Ibuprofen 800 Mg Tab) 800 mg PO Q8H PRN PRN Reason: mild pain or fever Last Admin: 01/09/21 08:09 Dose: 800 mg Documented by: Methylergonovine Maleate (Methylergonovine 0.2 Mg/1 Ml Amp) 0.2 mg IM ONETIME PRN PRN Reason: Excessive Vaginal Bleeding Misoprostol (Misoprostol 200 Mcg Tab) 1,000 mcg RECTAL ONETIME PRN PRN Reason: excessive bleeding Ondansetron HCl (Ondansetron 4 Mg/2 Ml Sdv) 4 mg IVPUSH Q4H PRN PRN Reason: Nausea/Vomiting Oxycodone/Acetaminophen (Acetaminophen/Oxycodone 325-5 Mg Tab) 1 tab PO Q4H PRN PRN Reason: Pain (moderate 4-6) Last Admin: 01/09/21 08:07 Dose: 1 tab Documented by: Oxycodone/Acetaminophen (Acetaminophen/Oxycodone 325-5 Mg Tab) 2 tab PO Q4H PRN PRN Reason: Pain (moderate 4-6) Oxytocin (Oxytocin 10 Units/1 Ml Sdv) 10 unit IM ASDIRECTED PRN PRN Reason: Excessive Vaginal Bleeding Sodium Chloride (Sodium Chloride 0.9% 10 Ml Syringe) 10 ml FLUSH ASDIRECTED PRN PRN Reason: Keep Vein Open Sodium Chloride (Sodium Chloride 0.9% 2.5 Ml Syringe) 2.5 ml FLUSH ASDIRECTED PRN PRN Reason: Keep Vein Open Sodium Chloride (Sodium Chloride 0.9% 10 Ml Sdv) 10 ml IV ASDIRECTED PRN PRN Reason: IV Use Sodium Chloride (Sodium Chloride 0.9% 10 Ml Syringe) 10 ml FLUSH ASDIRECTED PRN PRN Reason: Keep Vein Open Sodium Chloride (Sodium Chloride 0.9% 2.5 Ml Syringe) 2.5 ml FLUSH ASDIRECTED PRN PRN Reason: Keep Vein Open Terbutaline Sulfate (Terbutaline 1 Mg/Ml Sdv) 0.25 mg SUBCUT ASDIRECTED PRN PRN Reason: Tacysystole Discontinued Medications Bupivacaine HCl (Bupivacaine 0.5% 30 Ml Sdv) Confirm Administered Dose 30 ml .ROUTE .ST-MED ONE Stop: 01/07/21 01:58 Last Admin: 01/07/21 21:02 Dose: Not Given Documented by: Bupivacaine HCl (Bupivacaine 0.5% 30 Ml Sdv) Confirm Administered Dose 30 ml .ROUTE .STK-MED ONE Stop: 01/07/21 05:55 Last Admin: 01/07/21 21:02 Dose: Not Given Documented by: Butorphanol Tartrate (Butorphanol 1 Mg/Ml Sdv) 1 mg IVPUSH Q1H PRN PRN Reason: Pain Carboprost Tromethamine (Carboprost Tromethamine 250 Mcg/1 Ml Amp) 250 mcg IM ASDIRECTED PRN PRN Reason: Post Hemorrhage Cefazolin Sodium (Cefazolin 1 Gm Vial) Confirm Administered Dose 2 gm .ROUTE .STK-MED ONE Stop: 01/07/21 06:02 Fentanyl (Fentanyl 100 Mcg/2 Ml Sdv) Confirm Administered Dose 100 mcg .ROUTE .ST-MED ONE Stop: 01/06/21 11:13 Last Admin: 01/07/21 21:00 Dose: Not Given Documented by: Fentanyl (Fentanyl 100 Mcg/2 Ml Sdv) Confirm Administered Dose 100 mcg .ROUTE .ST-MED ONE Stop: 01/06/21 16:13 Last Admin: 01/07/21 21:00 Dose: Not Given Documented by: Fentanyl (Fentanyl 100 Mcg/2 Ml Sdv) Confirm Administered Dose 100 mcg .ROUTE .STK-MED ONE Stop: 01/06/21 16:30 Last Admin: 01/07/21 21:01 Dose: Not Given Documented by: Fentanyl (Fentanyl 100 Mcg/2 Ml Sdv) Confirm Administered Dose 100 mcg .ROUTE .ST-MED ONE Stop: 01/07/21 00:30 Last Admin: 01/07/21 21:01 Dose: Not Given Documented by: Fentanyl (Fentanyl 100 Mcg/2 Ml Sdv) Confirm Administered Dose 100 mcg .ROUTE .STK-MED ONE Stop: 01/07/21 01:57 Last Admin: 01/07/21 21:01 Dose: Not Given Documented by: Oxytocin/Sodium Chloride (Oxytocin 30 Unit/500 Ml-Ns) 30 unit in 500 mls @ 999 mls/hr IV TITRATE DOROTHY Tranexamic Acid 1,000 mg/ (Sodium Chloride) 110 mls @ 660 mls/hr IV ONETIME PRN PRN Reason: Bleeding Lactated Ringer's (Ringers, Lactated) 1,000 mls @ 150 mls/hr IV ASDIRECTED [facility] Last Admin: 01/07/21 00:40 Dose: 150 mls/hr Documented by: Fentanyl/Bupivacaine HCl (Fentanyl/Bupivacaine/Ns 2 Mcg-0.125% 250 Ml) Confirm Administered Dose 250 mls @ as directed .ROUTE .ST-MED ONE Stop: 01/06/21 11:13 Last Admin: 01/07/21 21:00 Dose: Not Given Documented by: Ropivacaine (Naropin 0.2%) Confirm Administered Dose 100 mls @ as directed .ROUTE .[facility] ONE Stop: 01/06/21 16:31 Last Admin: 01/07/21 21:01 Dose: Not Given Documented by: Ropivacaine (Naropin 0.2%) Confirm Administered Dose 100 mls @ as directed .ROUTE .[facility] ONE Stop: 01/07/21 00:30 Last Admin: 01/07/21 21:01 Dose: Not Given Documented by: Sodium Chloride (Normal Saline) Confirm Administered Dose 20 mls @ as directed .ROUTE .[facility]-MED ONE Stop: 01/07/21 06:04 Ketorolac Tromethamine (Ketorolac 30 Mg/Ml Sdv) Confirm Administered Dose 30 mg .ROUTE .Bliips-MED ONE Stop: 01/07/21 06:02 Ketorolac Tromethamine (Ketorolac 30 Mg/Ml Sdv) 30 mg IVPUSH Q6H [facility] Stop: 01/08/21 08:31 Last Admin: 01/07/21 13:25 Dose: Not Given Documented by: Ketorolac Tromethamine (Ketorolac 30 Mg/Ml Sdv) 30 mg IVPUSH Q6H [facility] Stop: 01/08/21 07:31 Last Admin: 01/08/21 08:13 Dose: 30 mg Documented by: Lidocaine HCl (Lidocaine 1% 50 Ml Mdv) 50 ml INJECT ONETIME PRN PRN Reason: Laceration repair Lidocaine/Epinephrine (Lidocaine 2% With Epinephrine 1:200,000 20 Ml Sdv) Confirm Administered Dose 20 ml .ROUTE .STTradyo-MED ONE Stop: 01/06/21 16:13 Last Admin: 01/07/21 21:00 Dose: Not Given Documented by: Methylergonovine Maleate (Methylergonovine 0.2 Mg/1 Ml Amp) 0.2 mg IM ASDIRECTED PRN PRN Reason: Post Hemorrhage Misoprostol (Misoprostol 200 Mcg Tab) 200 mcg PO ONETIME PRN PRN Reason: Post Hemorrhage Morphine Sulfate (Morphine Pf 10 Mg/10 Ml Sdv) Confirm Administered Dose 10 mg .ROUTE .STK-MED ONE Stop: 01/07/21 06:05 Nalbuphine HCl (Nalbuphine 10 Mg/1 Ml Vial) 10 mg IVPUSH Q1H PRN PRN Reason: Pain (severe 7-10) Ondansetron HCl (Ondansetron 4 Mg/2 Ml Sdv) 4 mg IVPUSH Q6H PRN PRN Reason: Nausea/Vomiting Last Admin: 01/06/21 18:12 Dose: 4 mg Documented by: Ondansetron HCl (Ondansetron 4 Mg/2 Ml Sdv) Confirm Administered Dose 4 mg .ROUTE .STK-MED ONE Stop: 01/07/21 06:02 Oxytocin (Oxytocin 10 Units/1 Ml Sdv) Confirm Administered Dose 20 unit .ROUTE .STK-MED ONE Stop: 01/07/21 06:02 Phenylephrine HCl (Phenylephrine 1% 10 Mg/Ml Sdv) Confirm Administered Dose 10 mg .ROUTE .STK-MED ONE Stop: 01/07/21 06:02 Sterile Water (Water For Irrigation,Sterile 1,000 Ml Container) 1,000 ml IRR ASDIRECTED PRN PRN Reason: delivery - Interaction Support Person: - Recovery Exam Fundal Tone: Firm Fundal Level: 2 Fingerbreadths Below Umbilicus Fundal Placement: Midline Lochia Amount: Scant Lochia Color: Rubra/Red Perineum Description: Intact, Minimal Bruising/Swelling Episiotomy/Laceration: None Bladder Status: Nonpalpable, Voiding Urinary Elimination: Voided - Exam General: Alert, Oriented Lungs: Normal Respiratory Effort Cardiovascular: Regular Rate, Regular Rhythm GI/Abdominal Exam: Normal Bowel Sounds, Soft Extremities: Pedal Edema (1+). No: Anna's Sign Skin: Warm, Dry, Intact Wound/Incisions: Healing Well, No Drainage. No: Erythema Neurological: No New Focal Deficit Psy/Mental Status: Alert, Normal Affect, Normal Mood - Problem List & Annotations (1) Arrest of descent, delivered, current hospitalization SNOMED Code(s): 25092880, 415851469 Code(s): O62.1 - SECONDARY UTERINE INERTIA Status: Acute Current Visit: Yes (2) Delivery by section SNOMED Code(s): 143348533 Code(s): OPX1995 - Status: Acute Current Visit: Yes - Problem List Review Problem List Initiated/Reviewed/Updated: Yes - My Orders Last 24 Hours: My Active Orders 01/09/21 08:57 Ready for Discharge [RC] PER UNIT ROUTINE - Assessment Assessment:: POD 2 status post Primary LTCS - Plan Plan:: VS are stable,patient would like to go home today. Discharge instructions reviewed. Follow up at [facility] 2 weeks. Discharge to home.
== END 2021-01-09 11:54 | disposition home or self-care (01) | DRG 540 ==
LOC: MW.OBCHECK 05:11 → MW.OB 05:13 → MW.OBCHECK 05:14 → MW.OB 05:14 → OBSVTOIN 01-07 06:53 → MW.OB 01-07 09:59
PROVIDERS: ADMIT Obstetrics & Gynecology; ATTEND Obstetrics & Gynecology
PROC: 10D00Z1 Extraction of Products of Conception, Low, Open Approach (ICD-10-PCS; principal; 2021-01-07)
PROC: 3E033VJ Introduction of Other Hormone into Peripheral Vein, Percutaneous Approach (ICD-10-PCS; 2021-01-07)
PROC: 3E0R3BZ Introduction of Anesthetic Agent into Spinal Canal, Percutaneous Approach (ICD-10-PCS; 2021-01-07)
PROC: 00HU03Z Insertion of Infusion Device into Spinal Canal, Open Approach (ICD-10-PCS; 2021-01-07)
DX: O48.0 Post-term pregnancy (principal); Z37.0 Single live birth; Z3A.40 40 weeks gestation of pregnancy; O76 Abnormality in fetal heart rate and rhythm complicating labor and delivery
CPT/HCPCS: 01967; 01968; 36415; 51702; 59025; 85014; 85018; 85027; 86592; 86850; 86900; 86901; 88307; A9270-GY; J0690; J1885; J2270; J2370; J2405; J2590; J2795; J3010; J3490; J7120

== ENCOUNTER 2024-08-27 00:49 | Emergency (ER) | payer BC ==
[2024-08-27 01:11] LABS: BASOPHILS ABSOLUTE AUTO 0.04 K/uL (0.00-0.20); BASOPHILS PERCENT AUTO 0.5 % (0.0-1.0); EOSINOPHILS ABSOLUTE AUTO 0.02 K/uL (0.00-0.45); EOSINOPHILS PERCENT AUTO 0.2 % (0.0-6.0); HEMATOCRIT 40.5 % (37.0-47.0); IMMATURE GRAN ABSOLUTE AUTO 0.02 K/uL (0.00-0.05); IMMATURE GRAN PERCENT AUTO 0.2 % (0.0-0.4); LYMPHOCYTES ABSOLUTE AUTO 1.12 K/uL (1.00-4.80); LYMPHOCYTES PERCENT AUTO 13.6 % (24.0-44.0); MEAN CORPUSCULAR HEMOGLOBIN 31.3 pg (28.0-32.0); MEAN CORPUSCULAR HGB CONC 34.6 g/dL (32.0-36.0); MEAN CORPUSCULAR VOLUME 90.6 fL (83.0-99.0); MEAN PLATELET VOLUME 10.3 fL (9.4-12.3); MONOCYTES ABSOLUTE AUTO 0.63 K/uL (0.00-0.80); MONOCYTES PERCENT AUTO 7.7 % (0.0-8.0); NEUTROPHILS ABSOLUTE AUTO 6.39 K/uL (1.80-7.70); NEUTROPHILS PERCENT AUTO 77.8 % (41.0-71.0); PLATELET COUNT,PLT 240 K/uL (150-400); RED BLOOD CELL COUNT 4.47 M/uL (4.10-5.30); WHITE BLOOD CELL COUNT,WBC 8.22 K/uL (3.9-11.3)
[2024-08-27 01:38] LABS: A/G RATIO 1.2 (0.9-1.6); ALBUMIN 4.2 g/dL (3.4-5.0); BILIRUBIN TOTAL 0.4 mg/dL (0.2-1.0); CALCIUM 9.5 mg/dL (8.5-10.1); CARBON DIOXIDE,CO2 28.5 mmol/L (21.0-32.0); EST CRCL DRUG DOSING (CG) 82.84 mL/min; POTASSIUM,K 3.6 mmol/L (3.5-5.1); PROTEIN TOTAL,TP 7.7 g/dL (6.4-8.2)
[2024-08-27] MEDS: Ketorolac 30 MG/ML SDV IVPUSH STA (01:46)
[2024-08-27] MEDS: Ondansetron 4 MG/2 ML SDV IVPUSH ONE (01:46)
[2024-08-27] MEDS: Sodium Chloride 0.9% 10 ML Syringe FLUSH PRN (01:47)
[2024-08-27] MEDS: Sodium Chloride 0.9% 2.5 ML Syringe FLUSH PRN (01:47)
[2024-08-27 01:53] LABS: APPEARANCE,URINE CLEAR; BILIRUBIN,URINE NEGATIVE (NEGATIVE); COLOR,URINE YELLOW; GLUCOSE,URINE NEGATIVE (NEGATIVE); KETONES,URINE TRACE mg/dL (NEGATIVE); LEUKOCYTE ESTERASE,URINE NEGATIVE (NEGATIVE); NITRITE,URINE NEGATIVE (NEGATIVE); OCCULT BLOOD,URINE NEGATIVE (NEGATIVE); PROTEIN,URINE NEGATIVE (NEGATIVE); UROBILINOGEN,URINE 0.2 EU/dL (<2.0)
[2024-08-27] MEDS: Famotidine 20 MG/2 ML SDV IVPUSH ONE (02:24)
[2024-08-27] MEDS: Alum Hydrox/Mag Hydrox/Simeth 15 ML, Metoclopramide 5 MG, Lidocaine 2% 5 ML PO ONE (02:24)
[2024-08-27] MEDS: Morphine 4 MG/ML Syringe IVPUSH ONE (02:24)
== END 2024-08-27 04:05 | disposition home or self-care (01) ==
LOC: MW.ED 00:49
DX: R10.10 Upper abdominal pain, unspecified (principal); J45.909 Unspecified asthma, uncomplicated; Z79.899 Other long term (current) drug therapy
CPT/HCPCS: 36415; 76856; 80053; 81003; 83690; 84703; 85025; 96374; 96375; 99284; A9270; J1885; J2270; J2405; J3490